=== PATIENT | female | born 2000 | race Caucasian/White ===

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

== ENCOUNTER → 2020-01-06 | Outpatient (CLI) | payer OTHER ==
--- NOTE | 2020-01-13 17:51 | REP ---
OBSTETRIC SONOGRAPHY HISTORY: Supervision of . Limited obstetric sonography. Nonreactive stress test. FINDINGS: Scanning through the gravid uterus demonstrates a viable single intrauterine gestation in a cephalic lie. The placenta is posterior grade 2 without evidence of placenta previa or abruption. Amniotic fluid is subjectively normal. BERNARDO is normal at 13.4 cm. Biophysical profile score is 8 out of a possible 8. Closed cervical length measured transabdominally is 3.3 cm. heart rate is recorded at 138 beats per minute. MTDD
== END ==
LOC: M WHC 14:57
PROVIDERS: ATTEND Obstetrics & Gynecology
DX: O10.919 Unspecified pre-existing hypertension complicating pregnancy, unspecified trimester (principal); Z3A.00 Weeks of gestation of pregnancy not specified

== ENCOUNTER 2020-01-09 15:49 | Inpatient (IN) | payer OTHER ==
[~2020-01-09] VITALS: Ht 160 cm; Wt 123.1 kg
[2020-01-09] VITALS (34 sets, daily range): BP systolic 137–210; BP diastolic 78–120
[~2020-01-09 15:49] MED LIST changes: -DOCU100C16 PO; -IBUP80TA PO; -LABE100T36 PO; -LABE10TAB PO; -NIFE1TAB52 PO; -OMEP40CA97 PO; -PERCOCET PO; -PRENTAB9 PO
[2020-01-09 16:37] LABS: HEMATOCRIT 32.5 % (36.0-47.0); HEMOGLOBIN 9.8 g/dl (12.0-15.5); MEAN CORPUSCULAR HEMOGLOBIN 26.6 pg (27.0-33.0); MEAN CORPUSCULAR HGB CONC 30.2 g/dl (32.0-36.5); MEAN CORPUSCULAR VOLUME 88.1 fl (80.0-96.0); PLATELET COUNT, AUTOMATED 188 10^3/uL (150-450); RED BLOOD COUNT 3.69 10^6/uL (4.00-5.40); WHITE BLOOD COUNT 9.8 10^3/uL (4.0-10.0)
[2020-01-09 16:52] LABS: TOTAL PROTEIN,RANDOM URINE 1477.6 MG/DL (0.0-12.0)
[2020-01-09 16:54] LABS: ALT/SGPT 11 U/L (12-78); BILIRUBIN,TOTAL 0.2 MG/DL (0.2-1.0); CREATININE FOR GFR 0.88 MG/DL (0.55-1.30); LDH LACTATE DEHYDROGENASE 228 U/L (84-246); URIC ACID 9.1 MG/DL (2.6-6.0)
[2020-01-09] MEDS ORDERED: LABE100T36 PO (17:07)
[2020-01-09] MEDS ORDERED: PRENTAB9 PO (17:07)
[2020-01-09] MEDS ORDERED: OMEP40CA97 PO (17:07)
[2020-01-09] MEDS ORDERED: BETAMETHASONE SOLUSPAN 6MG/ML 5ML VIAL (J0702 PER 3MG) IM SCH (17:30)
[2020-01-09] MEDS ORDERED: LABETALOL 100MG/20ML VIAL IV STA ×4 (18:14→18:52)
[2020-01-09] MEDS ORDERED: hydrALAZINE 20MG/ML 1ML VIAL (J0360 PER 20MG) IV STA (19:43)
[2020-01-09] MEDS ORDERED: hydrALAZINE 20MG/ML 1ML VIAL (J0360 PER 20MG) IV ONE (20:30)
[2020-01-09] MEDS: LABETALOL 100 MG TAB PO SCH (21:00)
[2020-01-09] MEDS ORDERED: MAG Sulf (L&D) 4 GM/100 ML 4 GM in IV 1 EA IV ONE (21:45)
[2020-01-09] MEDS ORDERED: MAG Sulf (OBGYN) 20GM/500ML 20,000 MG in IV 1 EA IV SCH (22:00)
[2020-01-09] MEDS ORDERED: LR 1,000 ML IV SCH (22:30)
[2020-01-09] MEDS: miSOPROStol 50 MCG 1/2 TAB (S0191) SL SCH (22:50)
[2020-01-10] VITALS (52 sets, daily range): BP systolic 109–179; BP diastolic 58–115
[2020-01-10] MEDS: miSOPROStol 50 MCG 1/2 TAB (S0191) SL SCH (02:50)
[2020-01-10] MEDS ORDERED: PENICILLIN G POTASSIUM IV 5 MU in D5W MINI-BAG PLUS 100 ML IV STA (04:31)
[2020-01-10] MEDS ORDERED: ACETAMINOPHEN 500 MG TAB PO ONE (05:15)
[2020-01-10] MEDS ORDERED: BETAMETHASONE SOLUSPAN 6MG/ML 5ML VIAL (J0702 PER 3MG) IM ONE (05:50)
[2020-01-10] MEDS ORDERED: OXYTOCIN DRIP 30 UNITS in IV 1 EA IV SCH ×2 (07:15→09:45)
[2020-01-10] MEDS ORDERED: PROMETHAZINE INJ 25 MG/ML VIAL (J2550) IV ONE (07:30)
[2020-01-10] MEDS ORDERED: BUTORPHANOL 2 MG/ML INJ (J0595) IV ONE (07:30)
[2020-01-10 07:37] LABS: HEMATOCRIT 29.8 % (36.0-47.0); HEMOGLOBIN 9.6 g/dl (12.0-15.5); MEAN CORPUSCULAR HEMOGLOBIN 27.4 pg (27.0-33.0); MEAN CORPUSCULAR HGB CONC 32.2 g/dl (32.0-36.5); MEAN CORPUSCULAR VOLUME 85.1 fl (80.0-96.0); PLATELET COUNT, AUTOMATED 219 10^3/uL (150-450); WHITE BLOOD COUNT 14.1 10^3/uL (4.0-10.0)
[2020-01-10] MEDS: LABETALOL 100 MG TAB PO SCH ×2 (07:40→23:01)
[2020-01-10] MEDS ORDERED: BICITRA 30ML SOLN UDC As Ordered ONE (08:11)
[2020-01-10] MEDS ORDERED: ceFAZolin 2 GM/D5W 50 ML IV BAG (J0690 PER 500MG) As Ordered ONE (08:11)
[2020-01-10 08:20] LABS: ALT/SGPT 11 U/L (12-78); BILIRUBIN,TOTAL 0.2 MG/DL (0.2-1.0); CREATININE FOR GFR 0.89 MG/DL (0.55-1.30); LDH LACTATE DEHYDROGENASE 286 U/L (84-246); MAGNESIUM LEVEL 4.3 MG/DL (1.4-2.0); URIC ACID 9.4 MG/DL (2.6-6.0)
[2020-01-10] MEDS ORDERED: NALOXONE INJ 0.4MG/1ML VIAL (J2310 PER 1MG) IV PRN ×2 (08:38)
[2020-01-10] MEDS ORDERED: diphenhydrAMINE 50MG/ML VIAL (J1200) IV PRN (08:38)
[2020-01-10] MEDS ORDERED: ONDANSETRON 4MG/2ML VIAL IV PRN ×3 (08:38→10:00)
[2020-01-10] MEDS ORDERED: METOCLOPRAMIDE INJ 10MG/2ML VIAL (J2765 PER 1) IV PRN (08:38)
[2020-01-10] MEDS ORDERED: NALBUPHINE HCL 10 MG/ML AMP (J2300) IV PRN ×2 (08:38→10:00)
[2020-01-10] MEDS ORDERED: ONDANSETRON 4MG/2ML VIAL As Ordered ONE (08:59)
[2020-01-10] MEDS ORDERED: dexameTHASONE 4 MG/ML 1ML VIAL (J1100 PER 1MG) As Ordered ONE (08:59)
[2020-01-10] MEDS ORDERED: MORPHINE PRES-FREE INJ 10 MG/10 ML VIAL (J2274) As Ordered ONE (08:59)
[2020-01-10] MEDS ORDERED: OXYTOCIN 30 UNITS IN 0.9% NaCl 500ML IV BAG (J2590) As Ordered ONE (08:59)
[2020-01-10] MEDS ORDERED: KETOROLAC 60MG 2ML VIAL As Ordered ONE (08:59)
[2020-01-10] MEDS ORDERED: PENICILLIN G POTASSIUM IV 2.5 MU in IV 1 EA IV SCH (09:00)
[2020-01-10] MEDS ORDERED: MEASLES,MUMPS,RUBELLA VACCINE INJ (MMR-II) (90707) SC SCH (09:45)
[2020-01-10] MEDS ORDERED: PERCOCET 5MG/325MG TAB PO PRN (09:45)
[2020-01-10] MEDS ORDERED: DOCUSATE SODIUM 100 MG CAP PO PRN (09:45)
[2020-01-10] MEDS ORDERED: RHOGAM 300 MCG (1500 IU) INJ (J2790) IM SCH (09:45)
[2020-01-10] MEDS ORDERED: LR 1,000 ML IV SCH (10:00)
[2020-01-10] MEDS ORDERED: fentaNYL 100 MCG/2 ML INJECTION (J3010) IV PRN (10:00)
[2020-01-10] MEDS: MAG Sulf (OBGYN) 20GM/500ML 20,000 MG in IV 1 EA IV SCH ×2 (10:40→22:11)
[2020-01-10] MEDS: LR 1,000 ML IV SCH ×2 (10:40→18:14)
[2020-01-10] MEDS: PERCOCET 5MG/325MG TAB PO PRN (11:30)
[2020-01-10] MEDS: KETOROLAC 30 MG/ML 1ML VIAL IV SCH ×2 (14:37→21:49)
[2020-01-11] VITALS (13 sets, daily range): BP systolic 116–167; BP diastolic 72–102
[2020-01-11] MEDS: KETOROLAC 30 MG/ML 1ML VIAL IV SCH (03:00)
[2020-01-11] MEDS: LR 1,000 ML IV SCH ×3 (04:17→17:45)
[2020-01-11 06:37] LABS: HEMATOCRIT 27.7 % (36.0-47.0); HEMOGLOBIN 8.8 g/dl (12.0-15.5); MEAN CORPUSCULAR HEMOGLOBIN 27.8 pg (27.0-33.0); MEAN CORPUSCULAR HGB CONC 31.8 g/dl (32.0-36.5); MEAN CORPUSCULAR VOLUME 87.4 fl (80.0-96.0); PLATELET COUNT, AUTOMATED 209 10^3/uL (150-450); RED BLOOD COUNT 3.17 10^6/uL (4.00-5.40); WHITE BLOOD COUNT 17.7 10^3/uL (4.0-10.0)
[2020-01-11] MEDS: PERCOCET 5MG/325MG TAB PO PRN (06:47)
[2020-01-11] MEDS ORDERED: BOOSTRIX/ADACEL VACCINE (DIPHTH/PERTUSS/ACELL/TETANUS) 0.5ML SYR IM ONE (09:00)
[2020-01-11] MEDS: PRENATAL VITAMINS CHEWABLE TABLET PO SCH (09:09)
[2020-01-11] MEDS: LABETALOL 100 MG TAB PO SCH ×2 (09:11→21:33)
[2020-01-11] MEDS: IBUPROFEN 800 MG TAB PO SCH ×2 (11:21→18:39)
[2020-01-11] MEDS: SLF 3 ML SYR IV SCH ×2 (18:40→22:00)
[2020-01-12] VITALS (18 sets, daily range): BP systolic 119–170; BP diastolic 72–106
[2020-01-12] MEDS: LR 1,000 ML IV SCH ×2 (01:45→09:45)
[2020-01-12] MEDS: IBUPROFEN 800 MG TAB PO SCH ×3 (02:34→19:54)
[2020-01-12] MEDS ORDERED: LABETALOL 100MG/20ML VIAL As Ordered ONE (02:55)
[2020-01-12] MEDS ORDERED: LABETALOL 100MG/20ML VIAL IV STA ×2 (02:55→04:33)
[2020-01-12] MEDS: PRENATAL VITAMINS CHEWABLE TABLET PO SCH (09:16)
[2020-01-12] MEDS: LABETALOL 100 MG TAB PO SCH (09:17)
[2020-01-12] MEDS: PERCOCET 5MG/325MG TAB PO PRN (09:19)
--- NOTE | 2020-01-12 10:17 | IPNPDOC ---
Progress Note Date of Service: Jan 12, 2020 Day#: 2 Progress Note POD 2 SUBJECT: Katie is a 19yo [id number] s/p uncomplicated PLTCS on 01/10/20 when undergoing IOL for pre-eclampsia with severe features at 34+ weeks. She is doing well /post-op day # 2, though needed labetalol PO increased yesterday for elevated bp's. She has been ambulating, voiding spontaneously without issue and tolerating regular diet. Baby is in the NICU, she has visited once and plans to visit again after breakfast. Plans to formula feed. Reports lochia is like a normal period. No f/c/n/v/CP/SOB. Has been using her IS. Pain is controlled with PO medications. Explicitly denies MORTON/vision changes/RUQ pain. OBJECTIVE: VITAL SIGNS: Mild range bp's, afebrile. Alert and oriented times three. Abdomen: Morbidly obese. Abdomen is soft, appropriately tender to palpation, non-distended. Pfannensteil incision covered by dry optifoam dressing with no strikethrough Extremities: trace edema of BLE, no pain with palpation of calves Labs: pre-op H/H: 9.8/32.5 post-op H/H: 8.8/27.7 ASSESSMENT: Katie is a 19yo [id number] s/p uncomplicated PLTCS on 01/10/20 when undergoing IOL for pre-eclampsia with severe features at 34+ weeks. She is doing well /post-op day # 2. Mild range bp's, afebrile, hemo dynamically stable with no evidence of infection. No evidence of worsening pre- eclampsia. PLAN: 1. Routine /post-operative care 2. Will add Nifedipine 30mg XL PO in addition to 300mg labetalol PO TID 3. Percocet and Motrin for pain. 4. Regular diet 5. Discussed benefits of breast feeding. Encourage ambulation and visitation of baby in NICU. 6. Undecided on contraception, interested in OCP possibly 7. Discussed removal of optifoam dressing at 5 days then keep incision very clean and dry. Ok to shower today. Dr. Carmen Nguyen MD VS, I&O, 24H, Fishbone Vital Signs/I&O Vital Signs Date Time Temp Pulse Resp B/P (MAP) Pulse Ox O2 Delivery O2 Flow Rate FiO2 01/12/20 10:02 98.7 92 18 145/88 (107) 01/12/20 09:15 98 Room Air I&O- Last 24 Hours up to 6 AM 01/12/20 06:00 Output Total 1210 ml Balance -1210 ml Carmen Nguyen MD Jan 12, 2020 10:17
[2020-01-12] MEDS: NIFEdipine 30 MG XL TAB PO SCH (11:00)
[2020-01-12] MEDS: SLF 3 ML SYR IV SCH ×3 (14:00→22:00)
[2020-01-13 02:00] VITALS: BP 160/80
[2020-01-13] MEDS: IBUPROFEN 800 MG TAB PO SCH (03:38)
[2020-01-13] MEDS: LABETALOL 100 MG TAB PO SCH ×2 (03:39→09:57)
[2020-01-13 06:00] VITALS: BP 144/86
[2020-01-13] MEDS ORDERED: DOCU100C16 PO (08:24)
[2020-01-13] MEDS ORDERED: PERCOCET PO (08:24)
[2020-01-13] MEDS ORDERED: NIFE1TAB52 PO (08:24)
[2020-01-13] MEDS ORDERED: LABE10TAB PO (08:24)
[2020-01-13] MEDS ORDERED: IBUP80TA PO (08:24)
[2020-01-13 08:40] VITALS: BP 138/82
[2020-01-13] MEDS: NIFEdipine 30 MG XL TAB PO SCH (08:46)
--- NOTE | 2020-01-13 08:46 | IPNPDOC ---
Progress Note Date of Service: Jan 13, 2020 Day#: 3 Progress Note POD 3 SUBJECT: Katie is a 19yo [id number] s/p uncomplicated PLTCS on 01/10/20 when undergoing IOL for pre-eclampsia with severe features at 34+ weeks. She is doing well /post-op day # 3. Added nifedipine 30mg PO yesterday to her regimen of labetalol 300mg BID and overall bp's better (she had severe range noted in the middle of the night, but was noticed at that time that she had missed the pm labetalol dose. Since then she has been mild range.) She has been ambulating, voiding spontaneously without issue and tolerating regular diet. Baby is in the NICU in [place], and she is eager for discharge to go visit baby. Plans to formula feed. Reports lochia is like a normal period. No f/c/n/v/CP/SOB. Has been using her IS. Pain is controlled with PO medications. Explicitly denies MORTON/vision changes/RUQ pain. OBJECTIVE: VITAL SIGNS: Mild range bp's, afebrile. Alert and oriented times three. Abdomen: Morbidly obese. Abdomen is soft, appropriately tender to palpation, non-distended. Pfannensteil incision covered by dry optifoam dressing with no strikethrough Extremities: trace edema of BLE, no pain with palpation of calves Labs: pre-op H/H: 9.8/32.5 post-op H/H: 8.8/27.7 ASSESSMENT: Katie is a 19yo [id number] s/p uncomplicated PLTCS on 01/10/20 when undergoing IOL for pre-eclampsia with severe features at 34+ weeks. She is doing well /post-op day # 3. Mild range bp's overall, afebrile, hemodynamically stable with no evidence of infection. No evidence of worsening pre-eclampsia. PLAN: 1. Discharge to home today with discharge meds ordered: Nifedipine 30mg XL PO QPM, 300mg labetalol PO BID, percocet, motrin and colace 2. Regular diet 3. Encouraged continued ambulation and use of IS 4. Undecided on contraception, interested in OCP possibly 5. Discussed removal of optifoam dressing at 5 days then keep incision very clean and dry. 6. Return precautions discussed for MORTON/vision changes/RUQ pain/SOB/CP, f/c, signs of wound infection, breast pain/redness, depression, heavy vaginal bleeding or anything else she finds concerning 7. Patient to return to clinic in [address] Carmen Nguyen MD VS, I&O, 24H, Fishbone Vital Signs/I&O Vital Signs Date Time Temp Pulse Resp B/P (MAP) Pulse Ox O2 Delivery O2 Flow Rate FiO2 01/13/20 06:00 97.9 90 18 144/86 (105) 97 Room Air Carmen Nguyen MD Jan 13, 2020 08:46
[2020-01-13] MEDS: PRENATAL VITAMINS CHEWABLE TABLET PO SCH (08:47)
[2020-01-13] MEDS: SLF 3 ML SYR IV SCH (08:48)
--- NOTE | 2020-01-13 08:55 | DS.PDOC ---
Discharge Summary General Date of Admission Jan 09, 2020 at 17:33 Date of Discharge Jan 13, 2020 Discharge Summary PROCEDURES PERFORMED DURING STAY: PLTCS ADMITTING DIAGNOSES: 1. pre-eclampsia with severe features at 34 weeks 2. morbid obesity DISCHARGE DIAGNOSES: 1. pre-eclampsia with severe features at 34 weeks, delivered 2. morbid obesity COMPLICATIONS/CHIEF COMPLAINT: High Blood Pressure 34WKS Gest. HISTORY OF PRESENT ILLNESS/HOSPITAL COURSE: Katie is a 19yo [id number] s/p uncomplicated PLTCS on 01/10/20 when undergoing IOL for pre-eclampsia with severe features at 34+ weeks. She received IV MgSO4 for 24 hours after delivery. She was initiated on both PO labetalol and nifedipine for bp control. Overall at time of discharge she has mild range bp's, she is afebrile, hemodynamically stable with no evidence of infection. And she has no evidence of worsening pre-eclampsia. [facility] sent to [facility] for prematurity and patient is eager to visit. DISCHARGE MEDICATIONS: Please see below. ALLERGIES: Please see below. PHYSICAL EXAMINATION ON DISCHARGE: VITAL SIGNS: Mild range bp's, afebrile. Alert and oriented times three. Abdomen: Morbidly obese. Abdomen is soft, appropriately tender to palpation, non-distended. Pfannensteil incision covered by dry optifoam dressing with no strikethrough Extremities: trace edema of BLE, no pain with palpation of calves LABORATORY DATA: pre-op H/H: 9.8/32.5 post-op H/H: 8.8/27.7 ACTIVITY: As tolerated, vaginal rest and no heavy lifting x 6 weeks DIET: regular DISPOSITION: home DISCHARGE PLAN/INSTRUCTIONS: 1. Discharge to home today with discharge meds ordered: Nifedipine 30mg XL PO QPM, 300mg labetalol PO BID, percocet, motrin and colace 2. Regular diet 3. Encouraged continued ambulation and use of IS 4. Undecided on contraception, interested in OCP possibly 5. Discussed removal of optifoam dressing at 5 days then keep incision very clean and dry. 6. Return precautions discussed for MORTON/vision changes/RUQ pain/SOB/CP, f/c, signs of wound infection, breast pain/redness, depression, heavy vaginal bleed ing or anything else she finds concerning 7. Patient to return to clinic in 2 weeks for incision check DISCHARGE CONDITION: Stable TIME SPENT ON DISCHARGE: Greater than [address] Carmen Nguyen MD Vital Signs/I&Os Vital Signs Date Time Temp Pulse Resp B/P (MAP) Pulse Ox O2 Delivery O2 Flow Rate FiO2 01/13/20 06:00 97.9 90 18 144/86 (105) 97 Room Air Discharge Medications Scheduled Ibuprofen (Ibuprofen) 800 Mg Tablet, 800 MG PO Q8H Labetalol HCl (Labetalol HCl) 100 Mg Tablet, 300 MG PO BID Nifedipine (Nifedipine ER) 30 Mg Tab.er.24, 30 MG PO QPM Omeprazole (Omeprazole) 40 Mg Capsule.dr, 40 MG PO DAILY, (Reported) No.137/Iron/Folic Acd ( Vitamin Tablet) 1 Each Tablet, 1 TAB PO DAILY, (Reported) Scheduled PRN Docusate Sodium (Docusate Sodium) 100 Mg Capsule, 100 MG PO QHSP PRN for CONSTIPATION Oxycodone/Acetaminophen (Oxycodone-Acetaminophen 5-325) 1 Each Tablet, 2 TAB PO Q6H PRN for SEVERE PAIN (PS 8-10) Allergies Coded Allergies: No Known Allergies (Unverified , 02/24/19) Carmen Nguyen MD Jan 13, 2020 08:55
[2020-01-13] MEDS ORDERED: BOOSTRIX/ADACEL VACCINE (DIPHTH/PERTUSS/ACELL/TETANUS) 0.5ML SYR IM ONE (09:00)
[2020-01-13 09:57] VITALS: BP 138/72
[2020-01-13 10:00] VITALS: BP 138/72
--- NOTE | 2020-02-04 09:02 | RO ---
DATE OF OPERATION: 01/10/2020 PREOPERATIVE DIAGNOSIS: 34 weeks, one day, preeclampsia severe POSTOPERATIVE DIAGNOSIS: 34 weeks, one day, preeclampsia severe PROCEDURE: Primary low transverse section. SURGEON: Rod Yeboah MD PAN PUSHER: Nikunj Spears DO ANESTHESIA: Spinal ESTIMATED BLOOD LOSS: 600 ml FINDINGS: 4 pounds, 12 ounce, 1874 gm male . OPERATIVE SUMMARY: The patient was taken to the operating room where spinal anesthesia was induced. She was prepped and draped in the sterile fashion in the supine position. A Thrasher catheter was placed. A Pfannenstiel skin incision was made with the scalpel carried through the fascia and fascia nicked and extended. The fascia resected off the rectus muscle. The peritoneal cavity was entered. A bladder flap was created. A Mobius retractor was placed. Curvilinear incision made in the lower uterine segment. Clear fluid was noted. This extended manually. was delivered from the vertex position without difficulty. The cord was doubly clamped and cut. The was handed off to the waiting loan supervisor. The placenta was expressed. The uterus was closed with 0-Vicryl in ruining locked fashion. A second imbricating layer of 0-Viryl was place. The peritoneum was closed with 2-0 Vicryl. The fascia was closed with 0-Vicryl in running fashion. The deep layer was irrigated and closed with 2-0 chromic. The skin was closed with 4-0 Monocryl subcuticular sutures. Sponge, instrument and needle counts were correct. MTDD
== END 2020-01-13 11:30 | disposition home or self-care (01) | DRG 540 ==
LOC: M LDO 15:49 → M LDI 17:33 → M OBS 01-11 12:03
PROVIDERS: ADMIT Specialist; ATTEND Specialist
PROC: 3E0P7GC Introduction of Other Therapeutic Substance into Female Reproductive, Via Natural or Artificial Opening (ICD-10-PCS; 2020-01-09)
PROC: 10D00Z1 Extraction of Products of Conception, Low, Open Approach (ICD-10-PCS; principal; 2020-01-10)
DX: O14.13 Severe pre-eclampsia, third trimester (principal); E66.01 Morbid (severe) obesity due to excess calories; O99.214 Obesity complicating childbirth; Z3A.34 34 weeks gestation of pregnancy; Z37.0 Single live birth

== ENCOUNTER 2021-01-22 22:51 | Emergency (ER) | payer OTHER ==
[~2021-01-22] VITALS: Ht 160 cm; Wt 124.4 kg
[~2021-01-22 22:51] MED LIST changes: +DOCU100C16 PO; +IBUP80TA PO; +LABE100T4 PO; +LABE100T5 PO; +NIFE1TAB52 PO; +OMEP40CA4 PO; +PERCOCET PO; +PRENTAB9 PO
[2021-01-22] MEDS ORDERED: FAMO40TA3 PO (22:57)
[2021-01-23 07:45] LABS: BASO % 0.5 % (0.0-1.0); EOS # 0.1 10^3/uL (0.0-0.5); EOS % 1.3 % (0.0-3.0); HEMATOCRIT 37.4 % (36.0-47.0); HEMOGLOBIN 11.4 g/dl (12.0-15.5); LYMPH # 3.2 10^3/uL (1.5-5.0); LYMPH % 37.1 % (24.0-44.0); MEAN CORPUSCULAR HEMOGLOBIN 24.5 pg (27.0-33.0); MEAN CORPUSCULAR HGB CONC 30.5 g/dl (32.0-36.5); MEAN CORPUSCULAR VOLUME 80.3 fl (80.0-96.0); MONO % 12.2 % (2.0-8.0); NEUTROPHILS # 4.1 10^3/uL (1.5-8.5); NEUTROPHILS % 48.5 % (36.0-66.0); PLATELET COUNT, AUTOMATED 338 10^3/uL (150-450); RED BLOOD COUNT 4.66 10^6/uL (4.00-5.40); WHITE BLOOD COUNT 8.5 10^3/uL (4.0-10.0)
[2021-01-23] MEDS ORDERED: DIFL150T PO (08:45)
[2021-01-23 09:18] VITALS: BP 135/82
[2021-01-23 10:08] LABS: GC DNA AMPLIFICATION NEGATIVE (NEGATIVE)
== END 2021-01-23 09:21 | disposition home or self-care (01) ==
LOC: M ED 22:51
DX: R31.9 Hematuria, unspecified (principal); B37.49 Other urogenital candidiasis; N89.8 Other specified noninflammatory disorders of vagina; I10 Essential (primary) hypertension; J45.909 Unspecified asthma, uncomplicated

== ENCOUNTER 2021-04-12 12:53 | Emergency (ER) | payer OTHER ==
[~2021-04-12] VITALS: Ht 160 cm; Wt 122.1 kg
[~2021-04-12 12:53] MED LIST changes: +DIFL150T PO; +FAMO40TA3 PO
[2021-04-12 13:53] LABS: RSV AMPLIFICATION NEGATIVE (NEGATIVE)
[2021-04-12 17:43] VITALS: BP 135/100
== END 2021-04-12 17:44 | disposition home or self-care (01) ==
LOC: M ED 12:53
DX: U07.1 COVID-19 (principal); M94.0 Chondrocostal junction syndrome [Tietze]; J45.909 Unspecified asthma, uncomplicated; Z79.899 Other long term (current) drug therapy

== ENCOUNTER → 2021-06-07 | Outpatient (REF) | payer OTHER ==
[2021-06-07 19:05] LABS: GC DNA AMPLIFICATION NEGATIVE (NEGATIVE)
== END ==
LOC: M SFHCWAGY 17:05
PROVIDERS: ATTEND Obstetrics & Gynecology
DX: Z01.419 Encounter for gynecological examination (general) (routine) without abnormal findings (principal); Z12.4 Encounter for screening for malignant neoplasm of cervix

== ENCOUNTER 2021-08-22 11:31 | Emergency (ER) | payer OTHER ==
[~2021-08-22] VITALS: Ht 160 cm; Wt 120.5 kg
[2021-08-22] MEDS ORDERED: NEXP1IMP SC (11:41)
[2021-08-22] MEDS ORDERED: ESOM0.1C PO (11:41)
[2021-08-22 16:15] LABS: BASO % 0.1 % (0.0-1.0); EOS % 0.1 % (0.0-3.0); HEMATOCRIT 36.9 % (36.0-47.0); HEMOGLOBIN 11.3 g/dl (12.0-15.5); LYMPH # 2.3 10^3/uL (1.5-5.0); LYMPH % 16.7 % (24.0-44.0); MEAN CORPUSCULAR HEMOGLOBIN 24.3 pg (27.0-33.0); MEAN CORPUSCULAR HGB CONC 30.6 g/dl (32.0-36.5); MEAN CORPUSCULAR VOLUME 79.4 fl (80.0-96.0); MONO % 7.6 % (2.0-8.0); NEUTROPHILS # 10.1 10^3/uL (1.5-8.5); PLATELET COUNT, AUTOMATED 321 10^3/uL (150-450); RED BLOOD COUNT 4.65 10^6/uL (4.00-5.40); WHITE BLOOD COUNT 13.4 10^3/uL (4.0-10.0)
[2021-08-22 16:40] LABS: BLOOD UREA NITROGEN 10 MG/DL (7-18); CALCIUM LEVEL 9.1 MG/DL (8.5-10.1); CARBON DIOXIDE LEVEL 22 MEQ/L (21-32); CHLORIDE LEVEL 111 MEQ/L (98-107); CREATININE FOR GFR 0.82 MG/DL (0.55-1.30); FREE THYROXINE INDEX 4.4 % (1.3-4.8); GLOMERULAR FILTRATION RATE > 60.0 (>60); GLUCOSE, FASTING 80 MG/DL (70-100); POTASSIUM SERUM 4.2 MEQ/L (3.5-5.1); SODIUM LEVEL 140 MEQ/L (136-145); T UPTAKE 37 % (30-39); THYROXINE (T4) 11.9 UG/DL (4.5-12.0)
[2021-08-22] MEDS ORDERED: IBUP-1022 PO (17:46)
[2021-08-22] MEDS ORDERED: VENTAER INH (17:46)
[2021-08-22 17:59] VITALS: BP 155/95
== END 2021-08-22 18:03 | disposition home or self-care (01) ==
LOC: M ED 11:31
DX: J45.909 Unspecified asthma, uncomplicated (principal); F41.9 Anxiety disorder, unspecified; E07.9 Disorder of thyroid, unspecified; Z79.3 Long term (current) use of hormonal contraceptives; F12.20 Cannabis dependence, uncomplicated

== ENCOUNTER → 2022-02-16 | Outpatient (CLI) | payer OTHER ==
[~2022-02-16] MED LIST changes: +ESOM0.1C PO; +ETON68IM SC; +IBUP-1022 PO; -LABE100T4 PO; -LABE100T5 PO; +LABE100T6 PO; +LABE100T71 PO
== END ==
LOC: M WHC 07:28
PROVIDERS: ATTEND Nurse Practitioner Family
DX: E04.1 Nontoxic single thyroid nodule (principal)

== ENCOUNTER → 2022-03-20 | Outpatient (CLI) | payer OTHER ==
[~2022-03-20] MED LIST changes: +ISOVUE-370 76% 100ML VIAL As Ordered ONE
== END ==
LOC: M RAD 03-02 14:55
PROVIDERS: ATTEND Nurse Practitioner Family
DX: R59.0 Localized enlarged lymph nodes (principal)
CPT/HCPCS: 70491; Q9967

== ENCOUNTER 2022-07-02 21:55 | Inpatient (IN) | payer MEDICAID, OTHER ==
[~2022-07-02] VITALS: Ht 160 cm; Wt 118.3 kg
[~2022-07-02 21:55] MED LIST changes: -ISOVUE-370 76% 100ML VIAL As Ordered ONE; +MONT-5 PO; -SING10TA32 PO
[2022-07-02 22:54] LABS: HEMATOCRIT 42.9 % (36.0-47.0); HEMOGLOBIN 13.1 g/dl (12.0-15.5); MEAN CORPUSCULAR HEMOGLOBIN 25.6 pg (27.0-33.0); MEAN CORPUSCULAR HGB CONC 30.5 g/dl (32.0-36.5); PLATELET COUNT, AUTOMATED 383 10^3/uL (150-450); RED BLOOD COUNT 5.11 10^6/uL (4.00-5.40); WHITE BLOOD COUNT 10.6 10^3/uL (4.0-10.0)
[2022-07-02 23:13] LABS: AMPHETAMINES LEVEL URINE NEGATIVE (NEGATIVE)
[2022-07-02 23:14] LABS: BARBITURATES URINE NEGATIVE (NEGATIVE); BENZODIAZEPINES URINE NEGATIVE (NEGATIVE); COCAINE METABOLITE URINE NEGATIVE (NEGATIVE); METHADONE URINE NEGATIVE (NEGATIVE); OPIATES URINE NEGATIVE (NEGATIVE); PHENCYCLIDINE URINE NEGATIVE (NEGATIVE)
[2022-07-02 23:16] LABS: ETHYL ALCOHOL (ETHANOL) 0.005 % (0.000-0.010)
[2022-07-02 23:17] LABS: ACETAMINOPHEN LEVEL < 2.0 UG/ML (10.0-20.0)
[2022-07-02 23:18] LABS: SALICYLATE LEVEL < 3.0 MG/DL (<30)
[2022-07-02 23:19] LABS: CANNABINOIDS URINE POSITIVE (NEGATIVE)
[2022-07-02 23:21] LABS: ALBUMIN 3.8 G/DL (3.2-5.2); ALKALINE PHOSPHATASE 124 U/L (46-116); ALT/SGPT 25 U/L (7.0-40); AST/SGOT 25 U/L (<34); BILIRUBIN,DIRECT 0.2 MG/DL (<0.4); BILIRUBIN,TOTAL 0.4 MG/DL (0.3-1.2); BLOOD UREA NITROGEN 11 MG/DL (9-23); CALCIUM LEVEL 9.4 MG/DL (8.5-10.1); CARBON DIOXIDE LEVEL 22 MMOL/L (20-31); CHLORIDE LEVEL 109 MMOL/L (98-107); CREATININE FOR GFR 0.78 MG/DL (0.55-1.30); GLOMERULAR FILTRATION RATE > 60.0 (>60); GLUCOSE, FASTING 101 MG/DL (60-100); POTASSIUM SERUM 3.7 MMOL/L (3.5-5.1); SODIUM LEVEL 142 MMOL/L (136-145)
[2022-07-02 23:23] LABS: HCG, SERUM QUALITATIVE NEGATIVE (NEGATIVE)
[2022-07-02] MEDS ORDERED: ALBU8.5H INH (23:33)
[2022-07-02] MEDS ORDERED: FERR1TAB8 PO (23:33)
[2022-07-02] MEDS ORDERED: OMEP40CA5 PO (23:33)
[2022-07-02] MEDS ORDERED: D-20TAB PO (23:33)
[2022-07-02] MEDS ORDERED: HOME MED LIST COMPLETE! XX SCH (23:35)
[2022-07-03] MEDS ORDERED: OLANZapine ORAL DISINTEGRATING TAB 5MG PO PRN (04:15)
[2022-07-03] MEDS ORDERED: MOM 30ML SUSPENSION UDC PO PRN (04:15)
[2022-07-03] MEDS ORDERED: MAALOX 30 ML SUSP *UDC PO PRN (04:15)
[2022-07-03] MEDS: SERTRALINE HCL 50 MG TAB PO SCH (08:52)
[2022-07-03] MEDS ORDERED: ALBUTEROL 90 MCG/ACT 8GM HFA INHALER INH PRN (11:25)
[2022-07-03] MEDS: OMEPRAZOLE 20MG CAP PO SCH (12:35)
[2022-07-03] MEDS: amLODIPine 5 MG TAB PO SCH (12:35)
[2022-07-03 18:05] VITALS: BP 157/88
[2022-07-03] MEDS: traZODone 50 MG TAB PO PRN (23:38)
[2022-07-04 06:26] VITALS: BP 132/85
[2022-07-04] MEDS: FERROUS SULFATE 325MG TAB PO SCH (09:16)
[2022-07-04] MEDS: SERTRALINE HCL 50 MG TAB PO SCH (09:19)
[2022-07-04] MEDS: amLODIPine 5 MG TAB PO SCH (09:19)
[2022-07-04] MEDS: OMEPRAZOLE 20MG CAP PO SCH (09:20)
[2022-07-04 17:55] VITALS: BP 134/98
[2022-07-04] MEDS: ACETAMINOPHEN TAB 650MG DOSE (2X325MG) PO PRN (21:13)
[2022-07-05 06:29] VITALS: BP 105/64
[2022-07-05] MEDS: OMEPRAZOLE 20MG CAP PO SCH (08:08)
[2022-07-05] MEDS: FERROUS SULFATE 325MG TAB PO SCH (08:08)
[2022-07-05] MEDS: amLODIPine 5 MG TAB PO SCH (08:08)
[2022-07-05] MEDS: SERTRALINE HCL 50 MG TAB PO SCH (08:08)
[2022-07-05 18:10] VITALS: BP 131/85
[2022-07-05] MEDS: traZODone 50 MG TAB PO PRN (22:45)
[2022-07-06 06:41] VITALS: BP 110/62
[2022-07-06] MEDS: OMEPRAZOLE 20MG CAP PO SCH (08:17)
[2022-07-06] MEDS: amLODIPine 5 MG TAB PO SCH (08:17)
[2022-07-06] MEDS: FERROUS SULFATE 325MG TAB PO SCH (08:18)
[2022-07-06] MEDS: SERTRALINE HCL 50 MG TAB PO SCH (08:18)
[2022-07-06 18:49] VITALS: BP 148/90
[2022-07-06] MEDS: ACETAMINOPHEN TAB 650MG DOSE (2X325MG) PO PRN (19:16)
[2022-07-06] MEDS: traZODone 50 MG TAB PO PRN (21:22)
[2022-07-07 06:46] VITALS: BP 115/70
[2022-07-07] MEDS: OMEPRAZOLE 20MG CAP PO SCH (08:44)
[2022-07-07] MEDS: SERTRALINE HCL 50 MG TAB PO SCH (08:44)
[2022-07-07] MEDS: amLODIPine 5 MG TAB PO SCH (08:45)
[2022-07-07] MEDS: FERROUS SULFATE 325MG TAB PO SCH (08:45)
[2022-07-07 18:45] VITALS: BP 140/80
[2022-07-07] MEDS: traZODone 50 MG TAB PO PRN (21:06)
[2022-07-07 21:45] VITALS: BP 147/94
[2022-07-08 06:19] VITALS: BP 112/74
[2022-07-08] MEDS: FERROUS SULFATE 325MG TAB PO SCH (08:32)
[2022-07-08] MEDS: SERTRALINE HCL 50 MG TAB PO SCH (08:32)
[2022-07-08] MEDS: OMEPRAZOLE 20MG CAP PO SCH (08:35)
[2022-07-08] MEDS: amLODIPine 5 MG TAB PO SCH (08:35)
[2022-07-08 18:57] VITALS: BP 136/80
[2022-07-08] MEDS: traZODone 50 MG TAB PO PRN (22:27)
[2022-07-09 06:34] VITALS: BP 122/71
[2022-07-09] MEDS: OMEPRAZOLE 20MG CAP PO SCH (08:45)
[2022-07-09] MEDS: SERTRALINE HCL 50 MG TAB PO SCH (08:46)
[2022-07-09] MEDS: amLODIPine 5 MG TAB PO SCH (08:46)
[2022-07-09] MEDS: FERROUS SULFATE 325MG TAB PO SCH (08:46)
[2022-07-09 16:53] VITALS: BP 138/88
[2022-07-09] MEDS: traZODone 50 MG TAB PO PRN (22:32)
[2022-07-10 06:46] VITALS: BP 108/65
[2022-07-10] MEDS ORDERED: AMLO1TAB24 PO (08:55)
[2022-07-10] MEDS ORDERED: HYDR-3363 PO (08:55)
[2022-07-10] MEDS ORDERED: TRAZ-252 PO (08:55)
[2022-07-10] MEDS ORDERED: SERT50TA29 PO (08:55)
[2022-07-10] MEDS: OMEPRAZOLE 20MG CAP PO SCH (09:06)
[2022-07-10 09:08] VITALS: BP 112/68
[2022-07-10] MEDS: amLODIPine 5 MG TAB PO SCH (09:08)
[2022-07-10] MEDS: FERROUS SULFATE 325MG TAB PO SCH (09:09)
[2022-07-10] MEDS: SERTRALINE HCL 50 MG TAB PO SCH (09:09)
== END 2022-07-10 12:19 | disposition home or self-care (01) | DRG 754 ==
LOC: M ED 21:55 → M ED INP 07-03 04:13 → M PSY 07-03 05:35
PROVIDERS: ADMIT Psychiatry & Neurology Psychiatry; ATTEND Psychiatry & Neurology Psychiatry
DX: F32.9 Major depressive disorder, single episode, unspecified (principal); I10 Essential (primary) hypertension; R45.851 Suicidal ideations; F43.10 Post-traumatic stress disorder, unspecified; F41.1 Generalized anxiety disorder; D50.9 Iron deficiency anemia, unspecified; R22.1 Localized swelling, mass and lump, neck; K21.9 Gastro-esophageal reflux disease without esophagitis; E04.1 Nontoxic single thyroid nodule; E66.9 Obesity, unspecified; Z91.51 Personal history of suicidal behavior; Z81.8 Family history of other mental and behavioral disorders; Z81.3 Family history of other psychoactive substance abuse and dependence; Z81.1 Family history of alcohol abuse and dependence; Z79.899 Other long term (current) drug therapy; Z62.811 Personal history of psychological abuse in childhood; Z62.810 Personal history of physical and sexual abuse in childhood

== ENCOUNTER 2022-07-27 08:02 | Emergency (ER) | payer MEDICAID, OTHER ==
[~2022-07-27] VITALS: Ht 160 cm; Wt 118.0 kg
[~2022-07-27 08:02] MED LIST changes: +ALBU8.5H INH; +AMLO1TAB24 PO; +D-20TAB PO; +FERR1TAB8 PO; +HYDR-3363 PO; +OMEP40CA5 PO; +SERT50TA29 PO; +TRAZ-252 PO
[2022-07-27] MEDS ORDERED: NS 1,000 ML IV ONE (08:55)
[2022-07-27 09:53] LABS: BASO % 0.5 % (0.0-1.0); EOS # 0.1 10^3/uL (0.0-0.5); EOS % 1.5 % (0.0-3.0); HEMATOCRIT 36.9 % (36.0-47.0); HEMOGLOBIN 11.5 g/dl (12.0-15.5); LYMPH # 2.6 10^3/uL (1.5-5.0); LYMPH % 35.2 % (24.0-44.0); MEAN CORPUSCULAR HEMOGLOBIN 25.9 pg (27.0-33.0); MEAN CORPUSCULAR HGB CONC 31.2 g/dl (32.0-36.5); MEAN CORPUSCULAR VOLUME 83.1 fl (80.0-96.0); MONO # 0.7 10^3/uL (0.0-0.8); MONO % 9.9 % (2.0-8.0); NEUTROPHILS # 3.9 10^3/uL (1.5-8.5); NEUTROPHILS % 52.6 % (36.0-66.0); PLATELET COUNT, AUTOMATED 334 10^3/uL (150-450); RED BLOOD COUNT 4.44 10^6/uL (4.00-5.40); WHITE BLOOD COUNT 7.4 10^3/uL (4.0-10.0)
[2022-07-27 10:10] LABS: LIPASE 35 U/L (12-53)
[2022-07-27 10:16] LABS: ALBUMIN 3.6 G/DL (3.2-5.2); ALKALINE PHOSPHATASE 103 U/L (46-116); ALT/SGPT 15 U/L (7.0-40); AST/SGOT 14 U/L (<34); BILIRUBIN,DIRECT 0.1 MG/DL (<0.4); BILIRUBIN,TOTAL 0.3 MG/DL (0.3-1.2); BLOOD UREA NITROGEN 12 MG/DL (9-23); CALCIUM LEVEL 8.8 MG/DL (8.5-10.1); CARBON DIOXIDE LEVEL 24 MMOL/L (20-31); CHLORIDE LEVEL 109 MMOL/L (98-107); CREATININE FOR GFR 0.87 MG/DL (0.55-1.30); GLOMERULAR FILTRATION RATE > 60.0 (>60); GLUCOSE, FASTING 85 MG/DL (60-100); SODIUM LEVEL 141 MMOL/L (136-145); TOTAL PROTEIN 6.5 G/DL (5.7-8.2)
[2022-07-27 10:23] LABS: HCG, SERUM QUALITATIVE NEGATIVE (NEGATIVE)
[2022-07-27] MEDS ORDERED: FLOM0.4C39 PO (12:27)
[2022-07-27] MEDS ORDERED: COLA100C5 PO (12:27)
[2022-07-27 12:42] VITALS: BP 148/92
== END 2022-07-27 12:56 | disposition home or self-care (01) ==
LOC: M ED 08:02
DX: K29.00 Acute gastritis without bleeding (principal); R59.0 Localized enlarged lymph nodes; N23 Unspecified renal colic; K76.0 Fatty (change of) liver, not elsewhere classified; K21.9 Gastro-esophageal reflux disease without esophagitis; N20.0 Calculus of kidney; J45.909 Unspecified asthma, uncomplicated; F32.A Depression, unspecified; F41.9 Anxiety disorder, unspecified; M54.9 Dorsalgia, unspecified; G89.29 Other chronic pain; Z79.899 Other long term (current) drug therapy

== ENCOUNTER 2022-08-06 20:12 | Emergency (ER) | payer OTHER ==
[~2022-08-06] VITALS: Ht 160 cm; Wt 116.2 kg
[2022-08-06 20:12] VITALS: BP 159/101
[~2022-08-06 20:12] MED LIST changes: +COLA100C5 PO; +FLOM0.4C39 PO
== END 2022-08-06 23:45 | disposition left against medical advice (07) ==
LOC: M ED 20:12
DX: Z53.21 Procedure and treatment not carried out due to patient leaving prior to being seen by health care provider (principal)

== ENCOUNTER 2022-10-22 12:39 | Emergency (ER) | payer OTHER ==
[~2022-10-22] VITALS: Ht 160 cm; Wt 115.6 kg
[2022-10-22 12:41] VITALS: BP 176/92; TEMP 97.1; O2SAT 98
[2022-10-22 13:38] LABS: BASO % 0.5 % (0.0-1.0); EOS # 0.1 10^3/uL (0.0-0.5); EOS % 1.2 % (0.0-3.0); HEMOGLOBIN 11.8 g/dl (12.0-15.5); LYMPH % 23.2 % (24.0-44.0); MEAN CORPUSCULAR HEMOGLOBIN 25.7 pg (27.0-33.0); MEAN CORPUSCULAR HGB CONC 31.1 g/dl (32.0-36.5); MEAN CORPUSCULAR VOLUME 82.6 fl (80.0-96.0); MONO % 11.8 % (2.0-8.0); NEUTROPHILS # 5.4 10^3/uL (1.5-8.5); PLATELET COUNT, AUTOMATED 304 10^3/uL (150-450); WHITE BLOOD COUNT 8.6 10^3/uL (4.0-10.0)
[2022-10-22 14:01] LABS: LIPASE 40 U/L (12-53)
[2022-10-22 14:04] LABS: ALBUMIN 3.7 G/DL (3.2-5.2); ALKALINE PHOSPHATASE 108 U/L (46-116); ALT/SGPT 12 U/L (7.0-40); AST/SGOT 10 U/L (<34); BILIRUBIN,DIRECT 0.2 MG/DL (<0.4); BILIRUBIN,TOTAL 0.4 MG/DL (0.3-1.2); BLOOD UREA NITROGEN 15 MG/DL (9-23); CALCIUM LEVEL 8.8 MG/DL (8.5-10.1); CARBON DIOXIDE LEVEL 25 MMOL/L (20-31); CHLORIDE LEVEL 109 MMOL/L (98-107); CREATININE FOR GFR 0.95 MG/DL (0.55-1.30); GLOMERULAR FILTRATION RATE > 60.0 (>60); GLUCOSE, FASTING 75 MG/DL (60-100); POTASSIUM SERUM 4.1 MMOL/L (3.5-5.1); SODIUM LEVEL 140 MMOL/L (136-145); TOTAL PROTEIN 7.1 G/DL (5.7-8.2)
== END 2022-10-22 18:06 | disposition home or self-care (01) ==
LOC: M ED 12:39
DX: R10.9 Unspecified abdominal pain (principal); R06.02 Shortness of breath; I10 Essential (primary) hypertension; J45.909 Unspecified asthma, uncomplicated; Z87.442 Personal history of urinary calculi; Z87.891 Personal history of nicotine dependence; Z79.899 Other long term (current) drug therapy; Z79.3 Long term (current) use of hormonal contraceptives

== ENCOUNTER 2023-03-08 02:31 | Emergency (ER) | payer OTHER ==
[~2023-03-08] VITALS: Ht 160 cm; Wt 116.8 kg
[2023-03-08 03:40] LABS: BASO % 0.5 % (0.0-1.0); EOS # 0.1 10^3/uL (0.0-0.5); EOS % 1.6 % (0.0-3.0); HEMATOCRIT 38.1 % (36.0-47.0); HEMOGLOBIN 11.8 g/dl (12.0-15.5); LYMPH # 3.3 10^3/uL (1.5-5.0); LYMPH % 38.2 % (24.0-44.0); MEAN CORPUSCULAR HEMOGLOBIN 25.9 pg (27.0-33.0); MEAN CORPUSCULAR VOLUME 83.6 fl (80.0-96.0); MONO # 0.8 10^3/uL (0.0-0.8); MONO % 9.4 % (2.0-8.0); NEUTROPHILS # 4.3 10^3/uL (1.5-8.5); PLATELET COUNT, AUTOMATED 252 10^3/uL (150-450); RED BLOOD COUNT 4.56 10^6/uL (4.00-5.40); WHITE BLOOD COUNT 8.6 10^3/uL (4.0-10.0)
[2023-03-08 04:19] LABS: LIPASE 35 U/L (12-53)
[2023-03-08 04:21] LABS: ALBUMIN 3.6 G/DL (3.2-5.2); ALKALINE PHOSPHATASE 109 U/L (46-116); ALT/SGPT 19 U/L (7.0-40); AST/SGOT 21 U/L (<34); BILIRUBIN,DIRECT < 0.1 MG/DL (<0.4); BILIRUBIN,TOTAL 0.3 MG/DL (0.3-1.2); TOTAL PROTEIN 7.2 G/DL (5.7-8.2)
[2023-03-08] MEDS ORDERED: IBUP80TA PO (07:51)
[2023-03-08 08:20] VITALS: BP 159/101; TEMP 98.8; O2SAT 99
== END 2023-03-08 08:17 | disposition home or self-care (01) ==
LOC: M ED 02:31
DX: N20.0 Calculus of kidney (principal); N92.6 Irregular menstruation, unspecified; Z79.51 Long term (current) use of inhaled steroids; Z79.899 Other long term (current) drug therapy; Z79.1 Long term (current) use of non-steroidal anti-inflammatories (NSAID)

== ENCOUNTER → 2023-08-06 | Outpatient (REF) ==
[~2023-08-06] MED LIST changes: +LABE100T40 PO; -LABE100T71 PO
[2023-08-06 10:35] LABS: RSV AMPLIFICATION NEGATIVE (NEGATIVE)
== END ==
LOC: M EMP 09:14
PROVIDERS: ATTEND Family Medicine
DX: Z11.52 Encounter for screening for COVID-19 (principal)

== ENCOUNTER → 2023-08-22 | Outpatient (REF) | LOC: M EMP 08:17 | PROVIDERS: ATTEND Family Medicine | DX: Z11.52 Encounter for screening for COVID-19 (principal) ==